=== PATIENT | male | born 1985 | race African-American/Black ===

== ENCOUNTER 2017-09-10 21:14 | Emergency (ER) | payer BC ==
[2017-09-10 22:29] LABS: INFLUENZA A PATIENT NEGATIVE (NEGATIVE); INFLUENZA B PATIENT NEGATIVE (NEGATIVE); OBC FLU VALID
== END 2017-09-10 23:22 | disposition home or self-care (01) ==
LOC: ER 23:22
DX: R50.9 Fever, unspecified (principal); R05 Cough; R09.81 Nasal congestion; R07.89 Other chest pain; I10 Essential (primary) hypertension
CPT/HCPCS: 87804; 87804-59; 99284